=== PATIENT | male | born 1930 | race Caucasian/White ===

== ENCOUNTER 2016-11-13 10:15 | Emergency (ER) | payer MEDICARE, BC ==
[~2016-11-13] VITALS: Ht 180.3 cm; Wt 73.7 kg
[2016-11-13 10:37] VITALS: BP 149/72; PULSE 77; RESP 16; TEMP 98.1; O2SAT 100
--- NOTE | 2016-11-13 11:57 | PD ---
HPI Chief Complaint: Injury Time Seen by Provider: 11:38 Travel History International Travel<30 days: No Contact w/Intl Traveler<30days: No Traveled to known affect area: No History of Present Illness HPI 86yo M with PMH of afib on coumadin, pace maker, valve replacement presents to the ED with c/o bleeding from left hand today. Pt had fell on his left arm 4 days ago and went to urgent care for it. Pt had hematoma and edema from left hand to left humerus and said the hematoma has decreased in size. Pt held his coumadin after the fall. Pt had skin break on dorsum of left arm that started bleeding today and it has not stopped. Denies any head trauma, chest pain, sob , n/v, abdominal pain, weakness or numbness. PFSH Past Medical History Hx Anticoagulant Therapy: Yes (STOPPED ON SUNDAY) Cardiovascular Problems: Yes (A-FIB) Social History Tobacco Use: Yes Allergies-Medications (Allergen,Severity, Reaction): Coded Allergies: No Known Allergies (Unverified , 11/13/16) Reported Meds & Prescriptions Reported Meds & Active Scripts Active Reported Keflex (Cephalexin) 250 Mg Cap 250 Mg PO Q6H Lupron Depot Inj Kit (Leuprolide (4 Month) Inj Kit) 30 Mg Syr 30 Mg IM Q112D Ropinirole 1 Mg Tab 1 Mg PO TID Aricept (Donepezil) 5 Mg Tab 5 Mg PO HS Namenda Xr (Memantine) 7 Mg Caper 7 Mg PO DAILY Metoprolol Tartrate 25 Mg Tab 25 Mg PO DAILY Lisinopril 2.5 Mg Tab 2.5 Mg PO DAILY Synthroid (Levothyroxine Sodium) 112 Mcg Tab 112 Mcg PO DIRECTED Warfarin 4 Mg Tab 4 Mg PO DIRECTED Lasix (Furosemide) 40 Mg Tab 40 Mg PO DAILY Review of Systems Except as stated in HPI: all other systems reviewed are Neg Physical Exam Narrative GENERAL: 86yo M not in distress. SKIN: Warm and dry. HEAD: Atraumatic. Normocephalic. CARDIOVASCULAR: Regular rate and rhythm. No murmur appreciated. RESPIRATORY: No accessory muscle use. Clear to auscultation. Breath sounds equal bilaterally. GASTROINTESTINAL: Abdomen soft, non-tender, nondistended. No rebound tenderness or guarding. MUSCULOSKELETAL: LUE: +Edema and ecchymoses from proximal humerus to dorsum of left hand. Hematoma on forearm that has been decreasing in size as per patient. +Skin break dorsum of left hand with active bleeding. +Skin tear distal humerus with a smalll amount of oozing. Radial pulse 2+. Sensation intact. Able to flex and extend all digits. Cap refill <2sec. NEUROLOGICAL: Awake and alert. No obvious cranial nerve deficits. Motor grossly within normal limits. Normal speech. PSYCHIATRIC: Appropriate mood and affect; insight and judgment normal. Data Data Last Documented VS Vital Signs Date Time Temp Pulse Resp B/P Pulse Ox O2 Delivery O2 Flow Rate FiO2 11/13/16 13:40 72 18 155/70 98 Room Air 11/13/16 10:37 98.1 Orders Complete Blood Count With Diff (11/13/16 11:46) Basic Metabolic Panel (Bmp) (11/13/16 11:46) Prothrombin Time / Inr (Pt) (11/13/16 11:46) Act Partial Throm Time (Ptt) (11/13/16 11:46) Elbow, Limited (Ap&Lat) (11/13/16 ) Wrist, Limited (Ap&Lat) (11/13/16 ) Gelatin 12 Mm/7 Mm Top (Gelfoam 12 Mm/7 (11/13/16 13:30) Labs Laboratory Tests Test 11/13/16 12:20 White Blood Count 5.5 TH/MM3 Red Blood Count 3.13 MIL/MM3 Hemoglobin 9.6 GM/DL Hematocrit 28.8 % Mean Corpuscular Volume 92.0 FL Mean Corpuscular Hemoglobin 30.5 PG Mean Corpuscular Hemoglobin 33.1 % Concent Red Cell Distribution Width 18.7 % Platelet Count 135 TH/MM3 Mean Platelet Volume 8.0 FL Neutrophils (%) (Auto) 68.4 % Lymphocytes (%) (Auto) 18.0 % Monocytes (%) (Auto) 9.8 % Eosinophils (%) (Auto) 3.5 % Basophils (%) (Auto) 0.3 % Neutrophils # (Auto) 3.8 TH/MM3 Lymphocytes # (Auto) 1.0 TH/MM3 Monocytes # (Auto) 0.5 TH/MM3 Eosinophils # (Auto) 0.2 TH/MM3 Basophils # (Auto) 0.0 TH/MM3 CBC Comment DIFF FINAL Differential Comment Prothrombin Time 13.7 SEC Prothromb Time International 1.2 RATIO Ratio Activated Partial 27.8 SEC Thromboplast Time Sodium Level 144 MEQ/L Potassium Level 4.3 MEQ/L Chloride Level 107 MEQ/L Carbon Dioxide Level 32.1 MEQ/L Anion Gap 5 MEQ/L Blood Urea Nitrogen 18 MG/DL Creatinine 0.99 MG/DL Estimat Glomerular Filtration 72 ML/MIN Rate Random Glucose 84 MG/DL Calcium Level 8.1 MG/DL MDM Medical Decision Making Medical Screen Exam Complete: Yes Emergency Medical Condition: Yes Interpretation(s) Laboratory Tests Test 11/13/16 12:20 White Blood Count 5.5 TH/MM3 (4.0-11.0) Red Blood Count 3.13 MIL/MM3 (4.50-5.90) Hemoglobin 9.6 GM/DL (13.0-17.0) Hematocrit 28.8 % (39.0-51.0) Mean Corpuscular Volume 92.0 FL (80.0-100.0) Mean Corpuscular Hemoglobin 30.5 PG (27.0-34.0) Mean Corpuscular Hemoglobin 33.1 % Concent (32.0-36.0) Red Cell Distribution Width 18.7 % (11.6-17.2) Platelet Count 135 TH/MM3 (150-450) Mean Platelet Volume 8.0 FL (7.0-11.0) Neutrophils (%) (Auto) 68.4 % (16.0-70.0) Lymphocytes (%) (Auto) 18.0 % (9.0-44.0) Monocytes (%) (Auto) 9.8 % (0.0-8.0) Eosinophils (%) (Auto) 3.5 % (0.0-4.0) Basophils (%) (Auto) 0.3 % (0.0-2.0) Neutrophils # (Auto) 3.8 TH/MM3 (1.8-7.7) Lymphocytes # (Auto) 1.0 TH/MM3 (1.0-4.8) Monocytes # (Auto) 0.5 TH/MM3 (0-0.9) Eosinophils # (Auto) 0.2 TH/MM3 (0-0.4) Basophils # (Auto) 0.0 TH/MM3 (0-0.2) CBC Comment DIFF FINAL Differential Comment Prothrombin Time 13.7 SEC (9.8-11.6) Prothromb Time International 1.2 RATIO Ratio Activated Partial 27.8 SEC Thromboplast Time (24.3-30.1) Sodium Level 144 MEQ/L (136-145) Potassium Level 4.3 MEQ/L (3.5-5.1) Chloride Level 107 MEQ/L (98-107) Carbon Dioxide Level 32.1 MEQ/L (21.0-32.0) Anion Gap 5 MEQ/L (5-15) Blood Urea Nitrogen 18 MG/DL (7-18) Creatinine 0.99 MG/DL (0.60-1.30) Estimat Glomerular Filtration 72 ML/MIN (>89) Rate Random Glucose 84 MG/DL (74-106) Calcium Level 8.1 MG/DL (8.5-10.1) Last Impressions Wrist X-Ray 11/13/16 0000 Signed Impressions: Service Date/Time: Sunday, November 13, 2016 12:03 - CONCLUSION: No acute bony injury Karl Leos MD Elbow X-Ray 11/13/16 0000 Signed Impressions: Service Date/Time: Sunday, November 13, 2016 12:06 - CONCLUSION: Unremarkable limited examination of the left elbow. Karl Leos MD Differential Diagnosis Supratherapeutic INR vs. fracture vs. hematoma vs. contusion Narrative Course 86yo M with left arm swelling and bleeding from dorsum of left hand after falling 4 days ago. Swelling has gone down. Labs reviewed, H/H low at 9.6/ 28.8. MCV 92.0. Pt states he has chronic anemia and gets periodic iron infusion. He is almost due for one. INR subtherapeutic at 1.2. VS stable. Pt follows up with Dr. Ceballos at [facility] so suggested pt to follow up with him tomorrow. Pt to restart coumadin for afib. Gelfoam placed on dorsum of hand and humerus and wrap with stretch bandage. Pt observed and dressing is clean and dry. Instructed pt to return if bleeding starts again. Xray of left elbow and wrist unremarkable. Diagnosis Primary Impression: Bleeding Patient Instructions: General Instructions Departure Forms: Tests/Procedures Additional Instructions: Please follow up with Dr. Ceballos at [facility] tomorrow. Your hemoglobin is 9.6 today and INR is 1.2. Please restart your coumadin as your INR is subtherapeutic. Return to the ED if you start bleeding again or any worsening symptoms. Med/Other Pt SpecificInfo: No Change to Meds Disposition: 01 DISCHARGE HOME Condition: Stable Franci Bautista DO Nov 13, 2016 11:57 Franci Bautista DO Nov 13, 2016 11:57
[2016-11-13] MEDS ORDERED: SYNT112T PO (12:17)
[2016-11-13] MEDS ORDERED: LISI2.5T3 PO (12:17)
[2016-11-13] MEDS ORDERED: MEMA7CAP PO (12:17)
[2016-11-13] MEDS ORDERED: ROPI1TAB PO (12:17)
[2016-11-13] MEDS ORDERED: FURO1TAB60 PO (12:17)
[2016-11-13] MEDS ORDERED: WARF-20 PO (12:17)
[2016-11-13] MEDS ORDERED: LUPR30IN IM (12:17)
[2016-11-13] MEDS ORDERED: METO25TA3 PO (12:17)
[2016-11-13] MEDS ORDERED: ARIC5TAB PO (12:17)
[2016-11-13] MEDS ORDERED: CEPH-459 PO (12:17)
--- NOTE | 2016-11-13 12:24 | RADHPO ---
EXAM DATE/TIME: 11/13/2016 12:03 [facility] COMPARISON: No previous studies available for comparison. INDICATIONS : Left wrist pain after fall. MEDICAL HISTORY : None. SURGICAL HISTORY : None. ENCOUNTER: Initial ACUITY: 4 - 6 days PAIN SCORE: 5/10 LOCATION: Left entire wrist FINDINGS: Two view examination of the left wrist demonstrates no soft tissue swelling, dislocation, or fracture . 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 Bony mineralization is normal. CONCLUSION: No acute bony injury Karl Leos MD on November 13, 2016 at 12:22 Board Certified Radiologist. This report was verified electronically.
--- NOTE | 2016-11-13 12:25 | RADHPO ---
EXAM DATE/TIME: 11/13/2016 12:06 [facility] COMPARISON: No previous studies available for comparison. INDICATIONS : Left elbow pain after fall MEDICAL HISTORY : None. SURGICAL HISTORY : None. ENCOUNTER: Initial ACUITY: 4 - 6 days PAIN SCORE: 5/10 LOCATION: Left entire elbow FINDINGS: Two view examination of the left elbow demonstrates no soft tissue swelling, joint effusion, fracture or dislocation. Bony mineralization is normal. CONCLUSION: Unremarkable limited examination of the left elbow. Karl Leos MD on November 13, 2016 at 12:23 Board Certified Radiologist. This report was verified electronically.
[2016-11-13 12:28] LABS: AUTOMATED NEUTROPHIL # 3.8 TH/MM3 (1.8-7.7); BASOPHIL % 0.3 % (0.0-2.0); EOSINOPHIL # 0.2 TH/MM3 (0-0.4); EOSINOPHIL % 3.5 % (0.0-4.0); HEMATOCRIT 28.8 % (39.0-51.0); MEAN CORPUSCULAR HEMOGLOBIN 30.5 PG (27.0-34.0); MEAN CORPUSCULAR HGB CONC 33.1 % (32.0-36.0); MONO % 9.8 % (0.0-8.0); NEUT % 68.4 % (16.0-70.0); PLATELET COUNT 135 TH/MM3 (150-450); RED BLOOD COUNT 3.13 MIL/MM3 (4.50-5.90); RED CELL DISTRIBUTION WIDTH 18.7 % (11.6-17.2); WHITE BLOOD COUNT 5.5 TH/MM3 (4.0-11.0)
[2016-11-13 12:29] LABS: HEMO FLAGS DIFF FINAL
[2016-11-13 12:36] LABS: POTASSIUM 4.3 MEQ/L (3.5-5.1)
[2016-11-13 12:39] LABS: APTT (PATIENT) 27.8 SEC (24.3-30.1); BICARBONATE 32.1 MEQ/L (21.0-32.0); INTERNATIONAL NORMALIZED RATIO 1.2 RATIO; PROTHROMBIN TIME - PATIENT 13.7 SEC (9.8-11.6)
[2016-11-13] MEDS ORDERED: GELATIN 12 MM/7 MM FOAM TOPICAL ONE (13:30)
[2016-11-13 13:40] VITALS: BP 155/70; PULSE 72; RESP 18; O2SAT 98
== END 2016-11-13 14:30 | disposition home or self-care (01) ==
LOC: PHED 10:15
DX: S61.412D Laceration without foreign body of left hand, subsequent encounter (principal); R58 Hemorrhage, not elsewhere classified; I48.91 Unspecified atrial fibrillation; Z95.2 Presence of prosthetic heart valve; Z79.01 Long term (current) use of anticoagulants; Z72.0 Tobacco use; W18.30XD Fall on same level, unspecified, subsequent encounter
CPT/HCPCS: 12001; 73070; 73100; 80048; 85025; 85610; 85730

== ENCOUNTER 2016-12-04 15:53 | Emergency (ER) | payer MEDICARE, BC ==
[~2016-12-04] VITALS: Ht 180.3 cm; Wt 74.3 kg
[~2016-12-04 15:53] MED LIST: ARIC5TAB PO; CEPH-459 PO; FURO1TAB60 PO; LISI2.5T3 PO; LUPR30IN IM; MEMA7CAP PO; METO25TA3 PO; ROPI1TAB PO; SYNT112T PO; WARF-20 PO
[2016-12-04 16:38] VITALS: BP 136/67; PULSE 82; RESP 16; TEMP 98.4; O2SAT 99
[2016-12-04] MEDS ORDERED: ZETI10TA5 PO (18:16)
[2016-12-04] MEDS ORDERED: ROSU1TAB4 PO (18:16)
[2016-12-04] MEDS ORDERED: LEVO.125 PO (18:16)
[2016-12-04] MEDS ORDERED: ROPI2TAB PO (18:16)
[2016-12-04] MEDS ORDERED: WARF-60 PO (18:16)
--- NOTE | 2016-12-04 18:43 | PD ---
HPI Chief Complaint: Skin Problem Time Seen by Provider: 18:43 Travel History International Travel<30 days: No Contact w/Intl Traveler<30days: No Traveled to known affect area: No History of Present Illness HPI 86-year-old male with a history of atrial fibrillation on Coumadin, pacemaker, valve repair, hypertension, pernicious anemia presents to the emergency department for evaluation of left forearm hematoma that occurred about 1 month ago secondary to a trip and fall. The patient has a history of mild dementia and much of the history is provided by the . He was subsequently seen in our emergency department a few days after the fall and had x-rays and lab work. States that since then the purple discoloration of the hematoma has improved but the bump has remained. States over the past 3 days the skin has broken down and there is now a wound over the hematoma was located. The patient saw the PA at Dr. Ceballos's office today and was told to come immediately to the emergency department. The patient denies any pain at the site. Denies any fever, chills, numbness or tingling, weakness. States he had his INR checked today at the office and it was 2.0. They have been applying peroxide to the wound regularly. No other complaints. PFSH Past Medical History Hx Anticoagulant Therapy: Yes (coumadin) Atrial Fibrillation: Yes Cancer: Yes (Prostate) Cardiovascular Problems: Yes (htn on meds, valve repairs) Congestive Heart Failure: Yes Cerebrovascular Accident: Yes (tia's) Dementia: Yes Diabetes: No Hypertension: Yes Neurologic: Yes (RLS) Radiation Therapy: Yes (Prostate) Thyroid Disease: Yes (Hypo-) Tetanus Vaccination: Unknown Past Surgical History Cardiac Surgery: Yes (PM, MV X's 2, TCV X's 1) Genitourinary Surgery: Yes (Prostatectomy ) Social History Alcohol Use: No Tobacco Use: No Substance Use: No Allergies-Medications (Allergen,Severity, Reaction): Coded Allergies: No Known Allergies (Unverified , 12/04/16) Reported Meds & Prescriptions Reported Meds & Active Scripts Active Reported Rosuvastatin (Rosuvastatin Calcium) 5 Mg Tab 5 Mg PO DAILY Ropinirole 2 Mg Tab 2 Mg PO HS Zetia (Ezetimibe) 10 Mg Tab 10 Mg PO DAILY Warfarin 6 Mg Tab 6 Mg PO WED Synthroid (Levothyroxine Sodium) 125 Mcg Tab 125 Mcg PO M.TH Lupron Depot Inj Kit (Leuprolide (4 Month) Inj Kit) 30 Mg Syr 30 Mg IM Q112D Ropinirole 1 Mg Tab 1 Mg PO DAILY Aricept (Donepezil) 5 Mg Tab 10 Mg PO HS Namenda Xr (Memantine) 7 Mg Caper 28 Mg PO DAILY Metoprolol Tartrate 25 Mg Tab 25 Mg PO DAILY Lisinopril 2.5 Mg Tab 10 Mg PO DAILY Synthroid (Levothyroxine Sodium) 112 Mcg Tab 112 Mcg PO JACKSON,T,W,FR, SA Warfarin 4 Mg Tab 4 Mg PO NOT ON WED Lasix (Furosemide) 40 Mg Tab 40 Mg PO DAILY Review of Systems Except as stated in HPI: all other systems reviewed are Neg Physical Exam Narrative GENERAL: Well-nourished and well-developed pleasant elderly male patient in no acute distress. SKIN: Warm and dry. HEAD: Normocephalic and atraumatic. EYES: No injection, drainage, or hyphema noted. PERRLA. EOMI. ENT: No nasal drainage noted. Oropharynx is clear. NECK: Supple and the trachea is midline. CARDIOVASCULAR: Regular rate and rhythm. RESPIRATORY: Breath sounds are equal bilaterally with no accessory muscle use, wheezing, rhonchi, or crackles. GASTROINTESTINAL: Abdomen is soft, non-tender, and nondistended. MUSCULOSKELETAL: There is a large hematoma to the dorsal left forearm with open ulcer approximately 5 cm in diameter. No surrounding erythema or warmth. No obvious deformities, swelling, or cyanosis is present throughout the upper and lower extremities. Patient has full range of motion without any signs of neurovascular compromise. NEUROLOGICAL: Awake, alert, and oriented. Normal speech and gait. Cranial nerves are grossly intact. Data Data Last Documented VS Vital Signs Date Time Temp Pulse Resp B/P Pulse Ox O2 Delivery O2 Flow Rate FiO2 12/04/16 16:38 98.4 82 16 136/67 99 Orders Complete Blood Count With Diff (12/04/16 18:42) Comprehensive Metabolic Panel (12/04/16 18:42) Prothrombin Time / Inr (Pt) (12/04/16 18:42) Act Partial Throm Time (Ptt) (12/04/16 18:42) Iv Access Insert/Monitor (12/04/16 18:42) Labs Laboratory Tests Test 2/13/17 2/13/17 19:10 19:45 White Blood Count 4.3 TH/MM3 Red Blood Count 3.54 MIL/MM3 Hemoglobin 10.5 GM/DL Hematocrit 32.5 % Mean Corpuscular Volume 91.8 FL Mean Corpuscular Hemoglobin 29.6 PG Mean Corpuscular Hemoglobin 32.2 % Concent Red Cell Distribution Width 18.8 % Platelet Count 143 TH/MM3 Mean Platelet Volume 8.9 FL Neutrophils (%) (Auto) 58.0 % Lymphocytes (%) (Auto) 24.4 % Monocytes (%) (Auto) 7.5 % Eosinophils (%) (Auto) 6.2 % Basophils (%) (Auto) 3.9 % Neutrophils # (Auto) 2.5 TH/MM3 Lymphocytes # (Auto) 1.0 TH/MM3 Monocytes # (Auto) 0.3 TH/MM3 Eosinophils # (Auto) 0.3 TH/MM3 Basophils # (Auto) 0.2 TH/MM3 CBC Comment DIFF FINAL Differential Comment Sodium Level 143 MEQ/L Potassium Level 4.3 MEQ/L Chloride Level 107 MEQ/L Carbon Dioxide Level 28.5 MEQ/L Anion Gap 8 MEQ/L Blood Urea Nitrogen 15 MG/DL Creatinine 0.96 MG/DL Estimat Glomerular Filtration 74 ML/MIN Rate Random Glucose 100 MG/DL Calcium Level 8.5 MG/DL Total Bilirubin 0.6 MG/DL Aspartate Amino Transf 30 U/L (AST/SGOT) Alanine Aminotransferase 17 U/L (ALT/SGPT) Alkaline Phosphatase 72 U/L Total Protein 6.2 GM/DL Albumin 3.6 GM/DL Prothrombin Time 18.3 SEC Prothromb Time International 1.6 RATIO Ratio Activated Partial 32.4 SEC Thromboplast Time MDM Medical Decision Making Medical Screen Exam Complete: Yes Emergency Medical Condition: Yes Differential Diagnosis Hematoma versus chronic wound versus cellulitis versus wound infection Narrative Course 86-year-old male presents to the emergency department for evaluation of left forearm hematoma with subsequent ulceration. Patient is afebrile, vital signs are stable. This is a hematoma that has been present for about a month after a mechanical fall. There was skin breakdown and now there is an ulcer overlying the hematoma. IV access was obtained, labs have been drawn and sent. CBC shows mild anemia with a hemoglobin of 10.5, hematocrit 32.5. CMP is unremarkable. Coags show INR is subtherapeutic at 1.6. Patient will be discharged to follow-up with Dr. Rader in office this week. Patient and family verbalized understanding and agreement with treatment plan. I discussed the case with my attending physician Dr. Barth who is aware of the patients history, physical examination findings, and treatment plan. Physician Communication Physician Communication I spoke with Dr. Rader, hand surgeon, who states this is not a hematoma that requires emergent evacuation or debridement and that the patient can follow-up in office with her this week. Diagnosis Primary Impression: Hematoma Referrals: Reina Rader MD Patient Instructions: General Instructions, Hematoma (ED) Additional Instructions: Follow-up with Dr. Rader hand surgeon on in [place] office. Return to the ED for any acute worsening of symptoms. Med/Other Pt SpecificInfo: No Change to Meds Disposition: 01 DISCHARGE HOME Condition: Stable Sherrie Valle Dec 04, 2016 18:43
[2016-12-04 19:28] LABS: AUTOMATED NEUTROPHIL # 2.5 TH/MM3 (1.8-7.7); BASOPHIL # 0.2 TH/MM3 (0-0.2); BASOPHIL % 3.9 % (0.0-2.0); EOSINOPHIL # 0.3 TH/MM3 (0-0.4); EOSINOPHIL % 6.2 % (0.0-4.0); HEMATOCRIT 32.5 % (39.0-51.0); HEMO FLAGS DIFF FINAL; LYMPH % 24.4 % (9.0-44.0); MEAN CELL VOLUME 91.8 FL (80.0-100.0); MEAN CORPUSCULAR HEMOGLOBIN 29.6 PG (27.0-34.0); MEAN CORPUSCULAR HGB CONC 32.2 % (32.0-36.0); MONO % 7.5 % (0.0-8.0); PLATELET COUNT 143 TH/MM3 (150-450); RED BLOOD COUNT 3.54 MIL/MM3 (4.50-5.90); RED CELL DISTRIBUTION WIDTH 18.8 % (11.6-17.2); WHITE BLOOD COUNT 4.3 TH/MM3 (4.0-11.0)
[2016-12-04 19:37] LABS: CHLORIDE 107 MEQ/L (98-107); SODIUM (NA) 143 MEQ/L (136-145)
[2016-12-04 19:41] LABS: ANION GAP 8 MEQ/L (5-15); BICARBONATE 28.5 MEQ/L (21.0-32.0); BLOOD UREA NITROGEN 15 MG/DL (7-18)
[2016-12-04 19:44] LABS: ALT (GPT) 17 U/L (12-78); AST (GOT) 30 U/L (15-37); GLOMERULAR FILTRATION RATE 74 ML/MIN (>89)
[2016-12-04 19:46] LABS: TOTAL BILIRUBIN ADULT 0.6 MG/DL (0.2-1.0)
[2016-12-04 19:47] LABS: ALKALINE PHOSPHATASE 72 U/L (45-117)
[2016-12-04 20:00] LABS: POTASSIUM 4.3 MEQ/L (3.5-5.1)
[2016-12-04 20:19] LABS: APTT (PATIENT) 32.4 SEC (24.3-30.1); INTERNATIONAL NORMALIZED RATIO 1.6 RATIO; PROTHROMBIN TIME - PATIENT 18.3 SEC (9.8-11.6)
== END 2016-12-04 20:59 | disposition home or self-care (01) ==
LOC: PHED 15:53 → PHEFT 20:59
DX: S50.12XD Contusion of left forearm, subsequent encounter (principal); I48.91 Unspecified atrial fibrillation; I10 Essential (primary) hypertension; E07.9 Disorder of thyroid, unspecified; F03.90 Unspecified dementia, unspecified severity, without behavioral disturbance, psychotic disturbance, mood disturbance, and anxiety; Z95.0 Presence of cardiac pacemaker; Z79.01 Long term (current) use of anticoagulants; Z86.2 Personal history of diseases of the blood and blood-forming organs and certain disorders involving the immune mechanism; Z86.79 Personal history of other diseases of the circulatory system; Z86.73 Personal history of transient ischemic attack (TIA), and cerebral infarction without residual deficits; Z86.69 Personal history of other diseases of the nervous system and sense organs; Z85.46 Personal history of malignant neoplasm of prostate; W01.0XXD Fall on same level from slipping, tripping and stumbling without subsequent striking against object, subsequent encounter
CPT/HCPCS: 80053; 85025; 85610; 85730; 99283